=== PATIENT | male | born 1950 | race Caucasian/White ===

== ENCOUNTER → 2016-11-17 | Outpatient (CLI) | payer OTHER | LOC: RAD 11:41 | PROVIDERS: ATTEND Internal Medicine | DX: M54.16 Radiculopathy, lumbar region (principal); M47.896 Other spondylosis, lumbar region | CPT/HCPCS: 72148 ==

== ENCOUNTER → 2018-11-23 | Outpatient (CLI) | payer MEDICARE, OTHER ==
--- NOTE | 2018-11-24 17:47 | XCELERA REPORT ---
[address] [address] Lower Extremity Arterial Evaluation Name: TESS FUENTES Age: 68 yrs Gender: Male : 1950 Patient Status: Outpatient Patient Location: [facility] Study Date: 11/23/2018 03:34 PM Procedure: A color flow and duplex scan of the lower extremity arteries was performed on the left with velocity and waveform anaylsis. Reason For Study: LEFT LOWER PVD Ordering Physician: KYE XIE Performed By: [place] Measurements and Calculations Right Left Prox PFA PSV 65.4 cm/sec Prox SFA PSV 90.8 cm/sec Mid SFA PSV 92.1 cm/sec Dist SFA PSV 90.4 cm/sec Prox Pop A PSV 54.2 cm/sec Mid HOMERO PSV 15.7 cm/sec Mid CLIMATOLOGIST PSV 47.3 cm/sec Left Side Arterial Evaluation Normal velocity and triphasic waveforms noted from the Common Femoral artery to the Popliteal artery. Biphasic with low normal velocity in the Posterior Tibial, trickle flow, low velocity, monophasic flow in the Anterior Tibial.. Ankle Brachial index not obtained . Interpretation Summary Moderate hemodynamically significant lesions in the left lower extremity only, on duplex imaging, at rest. Disease manifestations below knee, complex and progressively worse. : KYE XIE > Scooby Gomes
== END ==
LOC: SP 14:27
PROVIDERS: ATTEND Internal Medicine
DX: I73.9 Peripheral vascular disease, unspecified (principal)
CPT/HCPCS: 93926